=== PATIENT | female | born 1985 | race Caucasian/White ===

== ENCOUNTER → 2024-08-05 13:15 | Outpatient (REF) | payer OTHER, SELFPAY | LOC: HWWDC 13:15 | PROVIDERS: ATTENDING PHYSICIAN Internal Medicine | DX: Z12.31 Encounter for screening mammogram for malignant neoplasm of breast (principal) | CPT/HCPCS: 77063; 77067 ==

== ENCOUNTER 2024-10-20 18:30 | Emergency (ER) | payer OTHER, SELFPAY ==
[2024-10-20 18:35] VITALS: BP 119/69
[2024-10-20 19:56] VITALS: BMI 32.4
[2024-10-20 20:00] VITALS: BP 117/73
[2024-10-20] MEDS: NSS 1000 IV (20:12)
[2024-10-20] MEDS: TORADOL 15 MG IV (20:13)
[2024-10-20 20:16] LABS: % Basophils 0.2 % (0-2); % Eosinophils 0.8 % (0-6); % Immature Granulocytes 0.3 % (0-0.5); % Lymphocytes 13.6 % (20.5-51.1); % Monocytes 7.7 % (1.7-9.3); % Neutrophils 77.4 % (42.2-75.2); Absolute Eosinophils 0.1 10^3/uL (0-0.7); Absolute Lymphocytes 0.8 10^3/uL (1.2-3.4); Absolute Monocytes 0.5 10^3/uL (0.1-0.6); Absolute Neutrophils 4.6 10^3/uL (1.4-6.5); Hematocrit 37.2 % (37.0-47.0); Hemoglobin 12.1 g/dL (12.0-16.0); Mean Corp Hgb Conc. 32.5 g/dL (33.0-37.0); Mean Corpuscular Hgb 27.1 pg (27.0-31.0); Mean Corpuscular Volume 83.4 fL (81.0-99.0); Mean Platelet Volume 9.6 fL (7.4-10.4); Nucleated Red Blood Cells % 0 %; Platelet Count 224 10^3/uL (130-400); Red Blood Cell Count 4.46 10^6/uL (4.20-5.40); Red Cell Dist. Width 14.3 % (11.5-14.5)
[2024-10-20] MEDS: ZOFRAN 4 MG IV (20:16)
[2024-10-20 20:19] LABS: Urine Albumin 1+ (Neg - Trace); Urine Bilirubin 2+ (Negative); Urine Character Clear (Clear); Urine Color Amber; Urine Glucose Negative (Negative); Urine Ketone Negative (Negative); Urine Leukocyte Negative (Negative); Urine Nitrite Positive (Negative); Urine Occult Blood 1+ (Negative); Urine Specific Gravity 1.015 (<1.030); Urine Urobilinogen 2+ (Neg - 1+)
[2024-10-20 20:26] LABS: Urine Mucus Few; Urine Red Blood Cell 0-2 /HPF (0-2); Urine Squamous Cell 16-20 /LPF (Few)
[2024-10-20 20:27] LABS: Urine Bacteria Few (Negative)
[2024-10-20 20:34] LABS: HCG, Serum Qualitative Screen Negative
[2024-10-20 20:35] LABS: ALT (SGPT) 18 U/L (0-35); AST (SGOT) 21 U/L (14-36); Albumin 4.6 g/dl (3.5-5.0); Alkaline Phosphatase 70 U/L (38-126); Blood Urea Nitrogen 10 mg/dl (7-17); Carbon Dioxide 24 mmol/L (22-30); Chloride 105 mmol/L (98-107); Estimated Creatinine Clearance 102 ml/min; Glucose 96 mg/dl (70-99); Lactic Acid 0.7 mmol/L (0.7-2.0); Potassium 3.7 mmol/L (3.5-5.1); Sodium 139 mmol/L (135-145); Total Bilirubin 0.7 mg/dl (0.2-1.3); eGFR > 60.00
--- NOTE | 2024-10-20 21:02 | ED.GENMED ---
History of Present Illness
General
Chief Complaint: Urinary Symptoms
Source: patient
Exam Limitations: none
Time Seen by Provider: 10/20/24 19:39
History of Present Illness
History of Present Illness:
39yoF with a history of GERD and anxiety presenting for evaluation of UTI symptoms. Symptoms initially began 3 days ago with dysuria. She was seen by her PCP and had urine testing done and was diagnosed with a UTI. She was started on a course of
Bactrim. Her symptoms persisted despite taking the antibiotic. She also developed pain in her lower abdomen and lower back earlier today as well as nausea. She called her PCP who switched her antibiotic to ampicillin. She called back this
evening and was told to go to the ED for concern for possible kidney infection. She denies any fevers or vomiting.
Past History
Past History
ED Past Medical History: None
ED Past Surgical History: None
Phy Exam
General Physical Exam
General Presentation: well appearing and no apparent distress
General age: appears stated age
General Skin: warm and dry
General Habitus: normal
General Mental: alert
ENT Exam
ENT Exam: normocephalic
Cardiovascular Exam
Cardiovascular Exam: regular rate/rhythm
Pulmonary Exam
Pulmonary Exam: lungs clear, no respiratory distress, no rales, no crackles and no rhonchi
Gastrointestinal Exam
Gastrointestinal Exam: soft, non distended and other (+Mild tenderness throughout lower abdomen. No CVA tenderness. No rebound or guarding.)
Neurological Exam
Neurological Exam: alert
[place] Coma Scale
Eye Opening: Spontaneous
Verbal Response: Oriented
Motor Response: Obeys Commands
GCS Total Score: 15
Skin Exam
Skin Exam: normal color and warm/dry
Psychiatric Exam
Psychiatric Exam: normal mood/affect
Course
Orders/Labs/Results
Orders:
Orders
10/20/24 19:52
CT Abd/pelvis W Iv Cont Urgent
Comment:
Reason For Exam: Low back pain, lower abd pain, UTI symptoms
0.9% Sodium Chloride 1000 ml [Nss] 1,000 ml IV BOLUS
Ketorolac [Toradol] 15 mg IV NOW STA
Ondansetron Injectable [Zofran] 4 mg IV NOW STA
Test Result ONCE
10/20/24 20:06
Complete Blood Count/With Diff Urgent
Comprehensive Metabolic Panel Urgent
HCG, Serum Qualitative Screen Urgent
Lactate Level [Lactic Acid] Urgent
Urinalysis Reflex To Culture Urgent
Date Specimen was Collected: 10/20/24
Time Specimen was Collected: 19:55
Urine Microscopic Reflex Cult Urgent
Urine Culture Urgent
[facility]ERMAN Source: U
Specimen Description:
Date Specimen was Collected: 10/20/24
Time Specimen was Collected: 19:55
Abnormal Lab Results
10/20/24
20:06
MCHC 32.5 L g/dL
(33.0-37.0)
Absolute Lymphs (auto) 0.8 L 10^3/uL
(1.2-3.4)
Neutrophils % 77.4 H %
(42.2-75.2)
Lymphocytes % 13.6 L %
(20.5-51.1)
Ur Occult Blood Reflex 1+ A
(Negative)
Urine Nitrite (Reflex) Positive A
(Negative)
Urine Bilirubin 2+ A
(Negative)
Urine Urobilinogen 2+ A
(Neg - 1+)
Urine Bacteria (Reflex) Few A
(Negative)
Urine Albumin (Reflex) 1+ A
(Neg - Trace)
10/20/24 20:06
10/20/24 20:06
Vital Signs
Initial and Last Documented VS:
Initial Vital Signs
Temp Pulse Resp BP Pulse Ox
98.5 F 86 16 119/69 98
10/20/24 18:35 10/20/24 18:35 10/20/24 18:35 10/20/24 18:35 10/20/24 18:35
Last Documented Vital Signs
Temp Pulse Resp BP Pulse Ox
98.5 F 72 16 108/64 98
10/20/24 18:35 10/20/24 21:59 10/20/24 21:59 10/20/24 21:59 10/20/24 21:59
MDM/Problems Addressed
Differential Diagnosis Includes:
39yoF presenting at PCP's advice for concern for pyelonephritis. Started on abx for a UTI 3 days ago without improvement. Now c/o nausea, chills, and lower abd/back pain. VSS. She is well appearing in no distress. There is no CVA tenderness on exam.
Differential diagnosis includes but is not limited to: UTI, pyelonephritis, kidney stone, musculoskeletal
Initial ED plan: Check abdominal labs, lactate, UA, HCG, and CT abdomen with contrast. IV Toradol, Zofran, and fluid bolus for symptoms.
*Critical Care Note
Total Time (30-74mins, 75-104mins- exclusive of procedures): Not Applicable
Update Note
Update Note:
Labs unremarkable including normal white count, lactate, and renal function. Microscopic analysis of urine shows only 3-5 WBCs and a few bacteria. CT is negative for acute findings. No imaging evidence of pyelonephritis or obstructive uropathy.
Patient feeling much better on reassessment and vitals are normal. No indication for hospitalization as she is not meeting any SIRS criteria and UA is not overtly concerning. Unfortunately, I do not have the urine culture from 3 days ago available
to review. Her PCP did switch her to ampicillin earlier today. She was advised to continue this. Stressed importance of outpatient f/u with PCP and ED return precautions reviewed. She expressed understanding and is in agreement with plan.
ED Attending Note
-
Portions of this chart may have been created with voice recognition software.� Occasional wrong word or��sound alike� substitutions may have occurred due to the inherent limitations of voice recognition software.
Discharge Plan
Departure
Patient Disposition: Home (Routine Discharge)
Date of Disposition: 10/20/24
Time of Disposition: 22:13
Patient with high blood pressure during this ER visit?: No
Discharge Problem:
Urinary tract infection
Instructions: Urinary Tract Infection, Adult (DC)
Prescriptions:
No Action
ampicillin 500 mg Capsule
500 mg PO QID
sertraline [Zoloft] 100 mg Tablet
100 mg PO DAILY
famotidine [Pepcid] 20 mg Tablet
20 mg PO HS
Referrals:
Raz Milligan DO [Family Provider] -
Activity Restrictions/Additional Instructions:
Take ampicillin as prescribed by your family doctor. Drink plenty of fluids and hydrate.
Please follow-up with your family doctor tomorrow. Return to the ER with any new or worsening symptoms including fevers.
Interventions
Interventions:
*Risk Screen - Suicide Last Done: 10/20/24 18:37
*General Assessment Last Done: 10/20/24 19:56
*Neglect/Abuse Screening Last Done: 10/20/24 18:37
*ED- Fall Risk Assessment Last Done: 10/20/24 19:56
*ED COVID-19 Vaccine History Last Done: 10/20/24 19:56
*Nursing Disposition Last Done: 10/20/24 22:31
ED-Female Genitourinary Assessment Last Done: 10/20/24 20:00
Discharge Date and Time
Discharge Date/Time: 10/20/24 22:31
Print Language: UKRAINIAN
[2024-10-20 21:59] VITALS: BP 108/64
== END 2024-10-20 22:31 | disposition home or self-care (01) ==
LOC: EMR 18:30
PROVIDERS: Physician Assistant; EMERGENCY PHYSICIAN Emergency Medicine; FAMILY PHYSICIAN Internal Medicine
DX: N39.0 Urinary tract infection, site not specified (principal); F41.9 Anxiety disorder, unspecified; K76.89 Other specified diseases of liver
CPT/HCPCS: 99284; 96374; 96375; 96361; 74177; 80053; 81003; 81015; 83605; 84703; 85025; 87086; Q9967

== ENCOUNTER 2024-10-23 13:33 | Emergency (ER) | payer OTHER, SELFPAY ==
[2024-10-23 13:35] VITALS: BP 116/75
[2024-10-23 13:48] LABS: Hemoglobin 12.2 g/dL (12.0-16.0); Mean Corp Hgb Conc. 32.1 g/dL (33.0-37.0); Mean Corpuscular Volume 84.1 fL (81.0-99.0); Mean Platelet Volume 9.6 fL (7.4-10.4); Platelet Count 255 10^3/uL (130-400); Red Blood Cell Count 4.52 10^6/uL (4.20-5.40); Red Cell Dist. Width 14.4 % (11.5-14.5); White Blood Cell Count 5.9 10^3/uL (4.8-10.8)
[2024-10-23 14:02] LABS: HCG, Serum Qualitative Screen Negative
[2024-10-23 14:05] LABS: ALT (SGPT) 23 U/L (0-35); AST (SGOT) 23 U/L (14-36); Albumin 4.6 g/dl (3.5-5.0); Alkaline Phosphatase 63 U/L (38-126); Blood Urea Nitrogen 8 mg/dl (7-17); Calcium 9.4 mg/dl (8.4-10.2); Carbon Dioxide 25 mmol/L (22-30); Chloride 107 mmol/L (98-107); Glucose 85 mg/dl (70-99); Potassium 3.9 mmol/L (3.5-5.1); Sodium 141 mmol/L (135-145); Total Bilirubin 0.5 mg/dl (0.2-1.3); Total Protein 7.1 g/dl (6.3-8.2); eGFR > 60.00
[2024-10-23 15:01] LABS: % Basophils 0.3 % (0-2); % Immature Granulocytes 0.2 % (0-0.5); % Lymphocytes 35.4 % (20.5-51.1); % Monocytes 6.3 % (1.7-9.3); % Neutrophils 56.8 % (42.2-75.2); Absolute Eosinophils 0.1 10^3/uL (0-0.7); Absolute Lymphocytes 2.1 10^3/uL (1.2-3.4); Absolute Monocytes 0.4 10^3/uL (0.1-0.6); Absolute Neutrophils 3.3 10^3/uL (1.4-6.5); Nucleated Red Blood Cells % 0 %
[2024-10-23 15:27] LABS: Urine Albumin Negative (Neg - Trace); Urine Bilirubin Negative (Negative); Urine Character Clear (Clear); Urine Color Yellow; Urine Glucose Negative (Negative); Urine Ketone Negative (Negative); Urine Leukocyte Negative (Negative); Urine Nitrite Negative (Negative); Urine Occult Blood 3+ (Negative); Urine Urobilinogen 1+ (Neg - 1+)
[2024-10-23 15:33] LABS: Urine Mucus Few
[2024-10-23 15:34] LABS: Urine Bacteria Few (Negative); Urine Red Blood Cell 16-20 /HPF (0-2); Urine Squamous Cell 0-2 /LPF (Few); Urine White Cell 0-2 /HPF (0-5)
[2024-10-23 16:17] VITALS: BP 138/70
--- NOTE | 2024-10-23 17:05 | ED.GENMED ---
History of Present Illness
General
Chief Complaint: Urinary Symptoms
Time Seen by Provider: 10/23/24 14:55
Past History
Past History
ED Past Medical History: None
ED Past Surgical History: None
Course
Orders/Labs/Results
Orders:
Orders
10/23/24 13:37
Test Result ONCE
10/23/24 13:39
Complete Blood Count/With Diff Urgent
Comprehensive Metabolic Panel Urgent
HCG, Serum Qualitative Screen Urgent
10/23/24 15:18
Urinalysis Reflex To Culture Urgent
Date Specimen was Collected: 10/23/24
Time Specimen was Collected: 15:10
Urine Microscopic Reflex Cult Urgent
10/23/24 16:04
Chlamydia/GC by PCR Urgent
[facility]ER[facility] Source: Endo-Cervical
Specimen Description:
Source:: ENDOCERVICAL
Date Specimen was Collected: 10/23/24
Time Specimen was Collected: 16:00
Abnormal Lab Results
10/23/24 10/23/24
13:39 15:18
MCHC 32.1 L g/dL
(33.0-37.0)
Ur Occult Blood Reflex 3+ A
(Negative)
Urine RBC 16-20 A /HPF
(0-2)
Urine Bacteria (Reflex) Few A
(Negative)
10/23/24 13:39
10/23/24 13:39
Vital Signs
Initial and Last Documented VS:
Initial Vital Signs
Temp Pulse Resp BP Pulse Ox
36.4 C 83 17 116/75 99
10/23/24 13:35 10/23/24 13:35 10/23/24 13:35 10/23/24 13:35 10/23/24 13:35
Last Documented Vital Signs
Temp Pulse Resp BP Pulse Ox
36.3 C 82 16 138/70 98
10/23/24 16:17 10/23/24 16:17 10/23/24 16:17 10/23/24 16:17 10/23/24 16:17
MDM/Problems Addressed
Differential Diagnosis Includes:
cervicitiis, uretheritis, hematuria, uti
MDM/Problems Addressed:
39 yoF
here with bloo din her urine noticed today
she had uti sxs 6 days ago, given antibiotics (unknown) by PCP
took for 4 days with azo but worsening sypmtoms
switched to ampicillin but still came to ER
had ct scan neg and was told to continue the abx
she says she feels better except she is seeing blood with wiping
had uponrtected sex with new partner 2weeks aog; hasn't been checke dfor sti
she didn't believe that her bleeding was vaginal
on exam nontender abdomen
vaginal speculum exam reveals red blood in vault c/w menstrual bleeding
which is likeyl the cause of the 'hematuria'
no signs of residual uti
sent for gc/ct
d/c home
ED Attending Note
-
Portions of this chart may have been created with voice recognition software.� Occasional wrong word or��sound alike� substitutions may have occurred due to the inherent limitations of voice recognition software.
Discharge Plan
Departure
Patient Disposition: Home (Routine Discharge)
Date of Disposition: 10/23/24
Time of Disposition: 15:54
Patient with high blood pressure during this ER visit?: No
Condition: Fair
Covid-19: Not Applicable
Discharge Problem:
Vaginal bleeding
Instructions: Heavy periods - ED discharge instructions
Prescriptions:
No Action
ampicillin 500 mg Capsule
500 mg PO QID
sertraline [Zoloft] 100 mg Tablet
100 mg PO DAILY
famotidine [Pepcid] 20 mg Tablet
20 mg PO HS
Referrals:
Raz Milligan [Family Provider] - Follow up in 5-7 days
Activity Restrictions/Additional Instructions:
YOUR URINE DOESN'T APPEAR INFECTED
THE BLEEDING IN YOUR URINE IS PROBABLY VAGINAL - YOU ARE LIKELY HAVE MENSTRUAL BLEEDING
WE DID SWAB YOU FOR GONORRHEA AND CHLAMYDAI AND WILL CALL YOU IF YOU TEST POSITIVE
CONTINUE THE ANTIBIOTICS YOU WERE PRESCRIBED
RETURN FO RANY CONCERNS.
Interventions
Interventions:
*Risk Screen - Suicide Last Done: 10/23/24 13:36
*General Assessment Last Done: 10/23/24 13:36
*Neglect/Abuse Screening Last Done: 10/23/24 13:36
*ED COVID-19 Vaccine History Last Done: 10/23/24 13:36
*Nursing Disposition Last Done: 10/23/24 16:17
ED-Female Genitourinary Assessment Last Done: 10/23/24 14:00
Discharge Date and Time
Discharge Date/Time: 10/23/24 16:17
Print Language: MALTESE
== END 2024-10-23 16:17 | disposition home or self-care (01) ==
LOC: EMR 13:33
PROVIDERS: Emergency Medicine; EMERGENCY PHYSICIAN Student in an Organized Health Care Education/Training Program; FAMILY PHYSICIAN Internal Medicine
DX: N93.9 Abnormal uterine and vaginal bleeding, unspecified (principal); Z87.440 Personal history of urinary (tract) infections
CPT/HCPCS: 99283; 80053; 81003; 81015; 84703; 85025; 87491; 87591